=== PATIENT | female | born 1970 | race Caucasian/White ===

== ENCOUNTER 2020-10-19 19:41 | Emergency (ER) | payer OTHER ==
[~2020-10-19] VITALS: Ht 167.6 cm; Wt 72.6 kg
[~2020-10-19 19:41] MED LIST: CYCL10TA79 PO; RIZA10TA16 PO
[2020-10-19 20:15] VITALS: BP 107/65
[2020-10-19] MEDS ORDERED: AMOX-999 PO (22:22)
[2020-10-19 22:39] VITALS: BP 107/65
== END 2020-10-19 22:35 | disposition home or self-care (01) ==
LOC: MED 19:41
DX: S91.331A Puncture wound without foreign body, right foot, initial encounter (principal); Z79.899 Other long term (current) drug therapy; W45.0XXA Nail entering through skin, initial encounter; Y93.01 Activity, walking, marching and hiking; Y92.89 Other specified places as the place of occurrence of the external cause; Y99.8 Other external cause status
CPT/HCPCS: 73630; 90471; 90715; 99283

== ENCOUNTER 2022-12-28 12:47 | Emergency (ER) | payer OTHER ==
[~2022-12-28] VITALS: Ht 167.6 cm; Wt 70.8 kg
[~2022-12-28 12:47] MED LIST changes: +AMOX-999 PO; -RIZA10TA16 PO; +RIZA10TA88 PO
[2022-12-28 13:04] VITALS: BP 106/66; PULSE 102; RESP 18; TEMP 100.8; O2SAT 98
[2022-12-28] MEDS ORDERED: IBUPROFEN 600 MG TAB PO ONE (13:15)
[2022-12-28 13:54] LABS: FLU A ANTIGEN negative (NEGATIVE); FLU B ANTIGEN negative (NEGATIVE)
[2022-12-28] MEDS ORDERED: ONDANSETRON 4 MG ODT PO ONE (14:40)
[2022-12-28] MEDS ORDERED: FAMOTIDINE 20 MG TAB PO ONE (14:40)
[2022-12-28] MEDS ORDERED: FAMO-92 PO (15:23)
[2022-12-28] MEDS ORDERED: ONDA-188 SL (15:23)
[2022-12-28] MEDS ORDERED: IBUP-2213 PO (15:23)
[2022-12-28 15:41] VITALS: BP 127/83; PULSE 86; RESP 18; TEMP 98; O2SAT 97
[2022-12-29] MEDS ORDERED: IBUP-2213 PO (08:58)
[2022-12-29] MEDS ORDERED: FAMO-92 PO (08:58)
[2022-12-29] MEDS ORDERED: ONDA-188 SL (08:58)
== END 2022-12-28 15:32 | disposition home or self-care (01) ==
LOC: MED 12:47
DX: K29.70 Gastritis, unspecified, without bleeding (principal); Z20.822 Contact with and (suspected) exposure to COVID-19
CPT/HCPCS: 81002; 87426; 87804; 99283; Q0162